=== PATIENT | male | born 1955 | race Native Hawaiian/Other Pacific Islander ===

== ENCOUNTER 2018-11-20 09:09 | Outpatient (CLI) | payer OTHER | END 2018-11-20 09:10 | disposition home or self-care (01) | LOC: C.LAB 09:09 ==

== ENCOUNTER 2018-11-28 07:36 | Outpatient (CLI) | payer OTHER | END 2018-11-28 07:37 | disposition home or self-care (01) | LOC: C.LAB 07:36 ==